=== PATIENT | male | born 1960 | race Caucasian/White ===

== ENCOUNTER 2020-09-17 11:30 | Outpatient (RCR) | payer MEDICARE, MEDICAID, SELFPAY ==
[2020-08-13 12:02] VITALS: BMI 35.2
--- NOTE | 2020-08-18 11:55 | HP.PTEVAL_ITS ---
Patient's Visit Information CARLOS AREVALO is a 60 year old M referred to Physical Therapy by Dr. Asya Herrera DO with a diagnosis of B shoulder impingement. Date of Evaluation: 08/18/20 Physical Therapist: Jayjay Kim DPT - Visit Plan Frequency: 2x /Week Duration: 4-6 Weeks Plan: Start with shoulder/scapular stability. May use US and deep friction massage to biceps tendon if needed for pain control. - Subjective Pt. is here today for his initial evaluation with diagnosis of B shoulder impingement. He reports having increased pain for many years. He did do therapy in [place], but recently movements. He reprots minimal improvement with therapy previously. He was thinking he was goning to have surgery, prior to moving. Pt. denies N/T in either UE. 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 Increases pain: hold arms up on raised handle bars with riding his motor cycle, lifting UE with any wt's. Better: rest. Sleeping: increased pain in B shoulders. Pt. is hopeful to reduce symptoms in order ride motor cycle without issues, and complete all ADLs without increase in symptoms. - Pain R shoulder Pain Intensity (Out of 10): 0 Pain Intensity Range: 0, 7 Comment: bad in AMs, If I slep wrong L shoulder Pain Intensity (Out of 10): 1 Pain Intensity Range: 0, 7 - Objective POSTURE: Pt. has B forward shoulders. Pt. has increased thoracic kyphosis. PALPATION: pt. has increased tenderness at anterior aspect of B shoulders, along bicipital groove into anterior and lateral insertions of supraspinatus. NEURO: Normal sensation of BLEs, normal DTR bilaterally. ROM: Pt. has good ROM this date without increase in symptoms. No pain with end range over pressures into all directions. No pain with functional IR/ER motions as well. MMT: 4+/5 throughout B shoulders, except 4/5 B ER and with speeds testing. - Special Tests R Shoulder Drop Sign - IS Test: Negative R Shoulder Empty Can - SS: Negative R Shoulder Neer - Impingement: Negative R Shoulder Hale Eder - Impingement: Positive R Shoulder Biceps Load Test - Labrum: Negative R Shoulder Yeargasons - SLAP: Negative R Shoulder Speeds Test - Labrum/Biceps: Positive L Shoulder Drop Sign - IS Test: Negative L Shoulder Empty Can - SS: Negative L Shoulder Belly Press - SupScap: Negative L Shoulder Neer - Impingement: Negative L Shoulder Hale Eder - Impingement: Positive L Shoulder Biceps Load Test - Labrum: Negative L Shoulder Speeds Test - Labrum/Biceps: Positive - Goals Goal 1:: LTG: Pt. to be I with HEP for scapular stability. Goal Time Frame: 4-6 Weeks Goal 2:: STG: Pt. to sleep throughout the night without increase in symptoms. Goal Time Frame: 2-4 Weeks Goal 3:: LTG: Pt. to have increased BL shoulder strength to 5/5 throughout. Goal Time Frame: 4-6 Weeks Goal 4:: LTG: Pt. to have decreased symptoms of B shoulder by 50% with all functional activities. Goal Time Frame: 4-6 Weeks Goal 5:: LTG: Pt. to maintain good ROM without increase in symptoms. Goal Time Frame: 4-6 Weeks - Rehabilitation Potential Physical Therapy Diagnosis: Pt. has signs and symptoms consistent with B shoulder impingement. Pt. today had great ROM of B shoulders and strength was decent. He did have slight pain with speeds testing at proximal biceps region and slight weakness with ER bilat. Pt. reprots pain is at anterior shoulder, but not reproduced well today during special testing and strength testing. Pt. did have bilatera shoulder injections last week, which may be helping calm down his symptoms as well. Rehabilitation Potential: Good - Anticipated Interventions Patient/Client Instruction: Educate patient on: Condition, Plan of Care, Risk Factors, Benefits of Fitness Program For the Purpose of:: To facilitate caregiver knowledge, To improve self management, To prevent re-injury, To improve ability to perform tasks related to life management, To improve tolerance to ADL's Therapeutic Exercise to Include: Strength training, Power training, Postural training, Flexibilty training, Passive ROM, Active ROM, Ren Exercises, Scapular Strength/Stabilization For the Purpose of:: To decrease pain, To decrease swelling/inflammation, To increase ROM, To improve nutrient delivery to tissue, To increase oxygenation perfusion, To improve muscle performance and motor function, To improve health of tissue, To decrease soft tissue restriction, To increase flexibility/ROM Manual Therapy Techniques to Include: Passive ROM, Functional dry needling, Soft tissue mobilization For the Purpose of:: To decrease pain, To decrease swelling/inflammation, To increase ROM, To improve nutrient delivery to tissue, To increase oxygenation perfusion IF ES: Yes Cryotherapy (ice pack, ice massage): Yes Thermo therapy (hot pack): Yes Ultrasound (thermal/non thermal): Yes For the Purpose of:: To decrease pain, To decrease swelling/inflammation, To increase ROM, To improve nutrient delivery to tissue, To improve muscle performance and motor function Thank you for the opportunity to evaluate your patient. For Medicare and Medicare HMO plans, please review the plan of care and approve it. It will need to be FAXED BACK to us at [phone] for Medicare purposes. For Medicare only, by signing this I certify the plan of care. Please let me know if there are questions or concerns regarding this plan of care. Physician Signature: Date:
--- NOTE | 2020-09-23 15:12 | HP.PTDCSUM ---
It has been my pleasure to treat KARRIE AREVALO referred by Dr. Asya Herrera DO, with the diagnosis of B shoulder impingement for a total of 8 visit(s). Discharge Date: 09/23/20 Please see the following information for a summary of their discharge status. Subjective: Pt states his shoulders feel aggrivated from last session, has a disbelief in pain scale accuracy. R shoulder Pain Intensity (Out of 10): Unrated L shoulder Pain Intensity (Out of 10): Unrated % Improvement: 10 Objective/Function: I talked to karrie this date. He had missed his last appointment. He reports that he would handle PT well with his exercises, but then have a lot of pain in the evenings. He reports overall not a significant amount of change. He would like to return to doctor at this point in time. I will DC back to physician at this point in time. Goal 1:: LTG: Pt. to be I with HEP for scapular stability. Goal 2:: STG: Pt. to sleep throughout the night without increase in symptoms. Goal 3:: LTG: Pt. to have increased BL shoulder strength to 5/5 throughout. Goal 4:: LTG: Pt. to have decreased symptoms of B shoulder by 50% with all functional activities. Goal 5:: LTG: Pt. to maintain good ROM without increase in symptoms. Plan: Begin overhead activities as pt tolerates. Discharge Comments: I talked to karrie this date. He had missed his last appointment. He reports that he would handle PT well with his exercises, but then have a lot of pain in the evenings. He reports overall not a significant amount of change. He would like to return to doctor at this point in time. I will DC back to physician at this point in time. If there are questions or concerns regarding this patient's physical therapy, please feel free to call me at [phone]. Thank you for the referral of this patient. Sincerely, Jayjay Kim DPT
== END 2020-09-17 19:00 | disposition home or self-care (01) ==
LOC: PT 11:30
PROVIDERS: Referring Provider Orthopaedic Surgery; Visit Provider Orthopaedic Surgery
DX: M25.80 Other specified joint disorders, unspecified joint (principal)
CPT/HCPCS: 97110; 97161

== ENCOUNTER 2021-06-11 10:10 | Emergency (ER) | payer MEDICARE, MEDICAID, SELFPAY ==
[2021-06-11 10:10] VITALS: BP 129/97; PULSE 91; RESP 24; TEMP 36.8; O2SAT 93; BMI 32.2
--- NOTE | 2021-06-11 10:28 | EKG12_ITS ---
Test Reason : SOB Blood Pressure : / mmHG Vent. Rate : 094 BPM Atrial Rate : 094 BPM P-R Int : 146 ms QRS Dur : 102 ms QT Int : 366 ms P-R-T Axes : 062 077 040 degrees QTc Int : 457 ms Normal sinus rhythm Normal ECG Confirmed by ARGENIS MORRIS, JOSHUA ([id number]), slot editor JONI CACERES ([id number]) on 06/14/2021 11:30:46 AM Referred By: ODETTE/CARMEN Confirmed By:JOSHUA MORE MD
--- NOTE | 2021-06-11 10:30 | EDS_ITS ---
HPI History of Present Illness Chief Complaint: Shortness of Breath Narrative Narrative: 60-year-old male presenting with Covid symptoms. Patient states this has been ongoing for the past week. He has had fever, body aches, cough. He has had nausea and decreased appetite. He has had diarrhea. He denies chest pain or shortness of breath. He is not vaccinated for Covid. Prior similar symptoms: No Recent Illness/Hospitalization: No PFSH PFSH Medical History (Updated 06/11/21 @ 12:[address] Yadira Cruz MD) Heart attack Hypertension Home Medications ondansetron HCl [Zofran] 4 mg PO Q8H PRN #10 tab 06/11/21 [Rx Last Taken Unknown] Allergy/AdvReac Type Severity Reaction Status Date / Time No Known Allergies Allergy Unverified 08/13/20 12:07 Surgical History H/O heart artery stent H/O knee surgery H/O Spinal surgery H/O wrist surgery Social History (Updated 08/20/20 @ 15:[address] Asya Herrera, DO) Smoking Status: Former smoker ROS ROS ED Constitutional Constitutional ED: Reports chills and fever(s) Eyes Eyes: Denies change in vision ENT ENT ED: Denies rhinorrhea or sore throat Cardiovascular Cardiovascular: Denies chest pain or palpitations Respiratory/Chest Respiratory/Chest: Reports cough; Denies dyspnea Gastrointestinal Gastrointestinal: Reports diarrhea and nausea; Denies abdominal pain or vomiting Genitourinary Genitourinary ED: Denies dysuria Musculoskeletal Musculoskeletal: Reports myalgias Integumentary Denies rash Neurologic Neurologic: Reports headache(s) Psychiatric Psychiatric: Denies suicidal thoughts EXAM Physical Exam Const Vital Signs: 06/11/21 10:10 06/11/21 10:31 06/11/21 11:45 Temperature 98.2 F 97.9 F Temperature Source Oral Oral Pulse Rate 91 71 78 Respiratory Rate 24 H 19 H 18 Respiratory Effort Short of Breath Respiratory Depth Normal Respiratory Pattern Normal Blood Pressure 129/97 H 103/85 H Blood Pressure Mean 107 91 Pulse Ox 93 96 94 Oxygen Delivery Method Room Air Room Air Room Air Positive well nourished and well developed General Appearance ED: well developed HEENT Reports normocephalic and head/scalp atraumatic Eyes PERRL and EOMs intact bilaterally Neck supple General: Negative for tenderness Chest Wall inspection of chest normal Resp normal respiratory effort and clear to auscultation bilaterally Cardio regular rate and regular rhythm GI non-tender and non-distended Palpation: soft; Negative for guarding or rebound tenderness present no CVA tenderness Extremity normal to inspection Neuro oriented x3 Sensorium / Orientation: alert Psych mental status grossly normal Skin no rashes or lesions noted MDM MDM MDM Narrative Medical decision making narrative: Patient was given IV fluids, Zofran, Tylenol. Covid is positive. CBC, chemistries are unremarkable. Troponin is negative. Chest x-ray read by myself and radiology shows bilateral pulmonary infiltrates. Patient's pulse ox is 94% on room air. He has difficulty ambulating due to chronic pain but does not desaturate. He does qualify for outpatient monoclonal antibodies and this was ordered. He was given a pulse ox for home pulse ox monitoring. He is advised signs and symptoms for which to return to the ED. Advised to follow-up with primary care physician. Lab Data Attestation: I reviewed the patient's lab results. Labs: Laboratory Results - last 24 hr 06/11/21 06/11/21 10:10 10:10 WBC 7.8 RBC 5.30 Hgb 15.2 Hct 44.3 MCV 83.6 MCH 28.7 MCHC 34.3 RDW Std Deviation 40.2 RDW Coeff of Ronny 13.1 Plt Count 178 MPV 10.0 Immature Gran % (Auto) 0.400 Neut % (Auto) 79.5 H Lymph % (Auto) 14.0 L Moody % (Auto) 5.8 Eos % (Auto) 0.0 Baso % (Auto) 0.3 Absolute Neuts (auto) 6.2 Absolute Lymphs (auto) 1.09 Nucleated RBC % 0 Sodium 132 L Potassium 3.3 L Chloride 98 Carbon Dioxide 25.0 Anion Gap 9 BUN 11 Creatinine 0.91 Estim Creat Clear Calc 93.57 Est GFR (MDRD) Af Amer 109 Est GFR (MDRD) Non-Af 90 BUN/Creatinine Ratio 12.1 Glucose 127 H Calcium 8.7 Total Bilirubin 0.80 AST 37 ALT 36 Alkaline Phosphatase 89 Troponin I High Sens 12 Total Protein 7.7 Albumin 3.2 Globulin 4.5 H Albumin/Globulin Ratio 0.7 L Radiography Chest X-Ray - ED: 1 View, Read by ED Physician and Read by Radiologist Diagnostic Testing: Clinical Impression(s) from Imaging Studies Chest X-Ray 06/11/21 10:40 IMPRESSION: Bilateral pulmonary infiltrates worse in the left hemithorax and the preferential peripheral distribution, Covid pneumonitis should be ruled out. Electronically Signed: Nathen Tom MD at 11:03 EST , Service support , EKG Initial EKG: Attestation: I personally reviewed and interpreted this EKG as follows: Interpretation: Sinus Rhythm and No Acute Injury Pattern Discharge Plan Triage Chief Complaint: Shortness of Breath ED Provider: Yadira Cruz Dx/Rx/DC Orders Clinical Impression: COVID-19 Instructions: Coronavirus Disease 2019 (COVID-19): Overview Prescriptions: New ondansetron HCl [Zofran] 4 mg tablet 4 mg PO Q8H PRN (Reason: nausea and vomiting) Qty: 10 RF: 0 Other Ambulatory Orders: COVID Outpatient Monoclonal Antibody Referral (Routine) Timeframe: 1 Day Facility: [facility] - Location: [facility] Ordered By: Dr. Yadira Cruz Primary Care Provider: Care Physician,No Primary Referrals: Miguel Anderson MD [NON-STAFF] - Care Physician,No Primary [Primary Care Provider] - Disposition Disposition: Home, Self Care
[2021-06-11 10:31] VITALS: PULSE 71; RESP 19; O2SAT 96; O2SAT 97
[2021-06-11 10:38] LABS: Absolute Lymphocyte Count 1.09 X10^3/uL (0.83-4.51); Absolute Neutrophil Count 6.2 X10^3/uL (2.0-7.7); Basophil# 0.02 X10^3/uL; Basophil% 0.3 % (0-1); Hematocrit 44.3 % (40-54); Hemoglobin 15.2 g/dL (13.0-16.5); Lymphocyte # 1.09 X10^3/ul (0.83-4.51); Mean Corp Hgb Conc 34.3 g/dL (32-36); Mean Corpuscular Hgb 28.7 pg (27.0-32.0); Mean Corpuscular Volume 83.6 fL (80-94); Monocyte# 0.45 X10^3/uL; Monocyte% 5.8 % (0-10); NRBC Flagged by Analyzer 0 % (0-5); Neutrophil # 6.18 X10^3/uL (2.7-7.7); Neutrophil % 79.5 % (47-70); Platelet Count 178 K/mm3 (150-450); RBC Distribution Width CV 13.1 % (11.6-14.6); RBC Distribution Width SD 40.2 fl (35.1-43.9); White Blood Count 7.8 K/mm3 (4.4-11.0)
[2021-06-11] MEDS: Ondansetron 4 MG/2 ML Vial IV (10:39)
[2021-06-11] MEDS: 0.9% Normal Saline 1,000 ML 1000 ML IV (10:39)
[2021-06-11] MEDS: Acetaminophen 500 MG Tablet 1000 MG PO (10:39)
--- NOTE | 2021-06-11 10:40 | RAD_ITS ---
STUDY: X-RAY CHEST REASON FOR EXAM: Male, 60 years old. Cough TECHNIQUE: Single AP portable view of the chest. COMPARISON: None. FINDINGS: EKG electrodes are seen. Bilateral patchy pulmonary infiltrates worse in the left hemithorax in the preferential peripheral distribution. Covid pneumonitis should be ruled out. There is no demonstrated pleural abnormality. Normal size heart. Normal mediastinum and gilda. Normal visualized pulmonary arteries. There is atherosclerotic calcification of the aortic arch with tortuosity. Normal visualized thoracic spine. Normal visualized ribs, clavicles, and shoulders. There is no demonstrated abnormality of the visualized soft tissue structures of the upper abdomen. RAD/Chest 1 View (Portable) IMPRESSION: Bilateral pulmonary infiltrates worse in the left hemithorax and the preferential peripheral distribution, Covid pneumonitis should be ruled out. Electronically Signed: Nathen Tom MD at 11:03 EST , Service support ,
[2021-06-11 10:53] LABS: ALB/GLOB Ratio 0.7 RATIO (0.9-2.4); AST(SGOT) 37 U/L (15-37); Alanine Aminotransfer ALT/SGPT 36 U/L (16-61); Albumin, Serum 3.2 g/dL (3.2-5.0); Alkaline Phosphatase 89 U/L (45-117); Anion Gap 9 (5-15); BUN 11 mg/dL (7-18); BUN/Creat Ratio 12.1 RATIO (10-20); Calcium,Total 8.7 mg/dL (8.5-10.1); Chloride 98 mmol/L (98-107); Creatinine, Serum 0.91 mg/dL (0.70-1.30); EST Glomerular Filtration Rate 90 mL/min (>60); Est Glom Filt Rate - Afr Amer 109 mL/min (>60); Estimated Creatinine Clearance 93.57 ml/min; Globulin 4.5 g/dL (2.2-4.2); Glucose 127 mg/dL (74-106); Potassium 3.3 mmol/L (3.5-5.1); Protein, Total 7.7 g/dL (6.4-8.2); Sodium Level 132 mmol/L (136-145); Troponin-I HS 12 pg/mL (3.0-78.0)
[2021-06-11 11:45] VITALS: BP 103/85; PULSE 78; RESP 18; TEMP 36.6; O2SAT 94; O2SAT 95
[2021-06-11 12:45] VITALS: BP 127/78; PULSE 82; RESP 18; O2SAT 94
== END 2021-06-11 13:18 | disposition home or self-care (01) ==
PROVIDERS: Emergency Provider Emergency Medicine
DX: U07.1 COVID-19 (principal); I10 Essential (primary) hypertension; Z87.891 Personal history of nicotine dependence
CPT/HCPCS: 71045; 80053; 84484; 85025; 87426; 93005; 96361; 96374; 99285; J7030; A4216; J2405